=== PATIENT | female | born 1960 | race Caucasian/White ===

== ENCOUNTER 2021-02-08 12:33 | Observation (INO) ==
[2021-02-08] MEDS ORDERED: Pantoprazole 40 MG VIAL IVP ONE (12:44)
[2021-02-08] MEDS ORDERED: 0.9 % Sodium Chloride 1,000 ML IVC ONE (12:44)
[2021-02-08] MEDS ORDERED: Ondansetron ODT 4 MG TAB.RAPDIS SL ONE (12:44)
[2021-02-08] MEDS ORDERED: Ketorolac 30 MG/ML VIAL IVP ONE (12:44)
[2021-02-08 13:05] LABS: Basophils # 0.1 K/mcL (0.0-0.2); Basophils % 1.4 %; Eosinophils # 0.1 K/mcL (0.0-0.6); Eosinophils % 1.6 %; Hematocrit 43.2 % (35.3-44.9); Hemoglobin 14.9 g/dL (11.5-15.4); Immature Granulocytes % 0.4 % (0-4); Lymphocytes # 1.5 K/mcL (0.6-4.6); Mean Corpuscular HGB Conc 34.5 g/dL (31.6-35.5); Mean Corpuscular Hemoglobin 33.9 pg (28.0-33.3); Mean Corpuscular Volume 98.4 fL (83.0-100.0); Mean Platelet Volume 9.5 fL (9.4-12.4); Monocytes # 0.6 K/mcL (0.0-1.3); Monocytes % 7.6 %; Neutrophils # 5.1 K/mcL (1.6-8.9); Platelet Count 253 K/mcL (140-400); Red Blood Count 4.39 M/mcL (3.82-4.97); Red Cell Distribution Width 12.1 % (11.5-14.5); White Blood Count 7.4 K/mcL (4.3-11.1)
[2021-02-08 13:12] LABS: INR 1.1; Prothrombin Time 11.9 Seconds (9.4-12.1)
[2021-02-08 13:14] LABS: Activated Partial Thrombo Time 34.3 Seconds (26.0-36.0)
[2021-02-08 13:21] LABS: Alanine Aminotransferase 87 Units/L (7-52); Albumin 4.3 g/dL (3.5-5.7); Albumin/Globulin Ratio 1.3 (1.1-2.2); Alkaline Phosphatase 75 Units/L (34-104); Amylase 15 Units/L (29-103); Aspartate Amino Transferase 78 Units/L (13-39); BUN/Creatinine Ratio 7 (6-26); Bilirubin,Direct 0.2 mg/dL (0.0-0.2); Bilirubin,Indirect 0.4 mg/dL (0.0-1.0); Bilirubin,Total 0.6 mg/dL (0.3-1.0); Blood Urea Nitrogen 4 mg/dL (6-20); Calcium 9.1 mg/dL (8.6-10.3); Carbon Dioxide 21 mEq/L (23-29); Chloride 98 mEq/L (98-107); Globulin 3.2 g/dL (2.4-3.5); Glucose 104 mg/dL (70-105); Lipase 14 Units/L (11-82); Osmolality,Calculated 269 (280-300); Potassium 3.7 mEq/L (3.5-5.1); Sodium 131 mEq/L (136-145); Total Protein 7.5 g/dL (6.4-8.9); eGFR For African Americans > 60 (> 60); eGFR For Non-African Americans > 60 (> 60)
[2021-02-08 13:57] LABS: Bilirubin,Urine Negative (Negative); Blood,Urine Negative (Negative); Clarity,Urine Clear (Clear); Color,Urine Light-Yellow (Yellow); Glucose,Urine (UA) Normal (Normal); Ketones,Urine Negative (Negative); Leukocyte Esterase,Urine Negative (Negative); Nitrite,Urine Negative (Negative); PH,Urine 5.5 pH Units (5.0-8.0); Protein,Urine Negative (Neg-Trace); Specific Gravity,Urine 1.007 (1.010-1.025); Urobilinogen,Urine Normal (Normal)
[2021-02-08] MEDS ORDERED: *HR* Heparin 5,000 UNIT/ML VIAL IVP PRN ×2 (15:19)
[2021-02-08] MEDS ORDERED: *HR* Heparin 5,000 UNIT/ML VIAL IVP ONE (15:19)
[2021-02-08] MEDS ORDERED: Heparin 25,000UNIT/250ML 1/2NS 25,000 UNIT/250 ML IV.SOLN IVC SCH (15:30)
[2021-02-08 16:33] LABS: Amphetamine Screen,Urine Negative ng/mL (Cutoff=1000); Barbiturate Screen,Urine Negative ng/mL (Cutoff=200); Benzodiazepines Screen,Urine Negative ng/mL (Cutoff=200); Cannabinoid Screen,Urine Negative ng/mL (Cutoff = 50); Cocaine Screen,Urine Negative ng/mL (Cutoff= 300); Opiate Screen,Urine Negative ng/mL (Cutoff=300); Phencyclidine Screen,Urine Negative ng/mL (Cutoff=25)
[2021-02-08] MEDS ORDERED: Naloxone 0.4 MG/ML INJ IVP PRN (16:41)
[2021-02-08] MEDS ORDERED: Ondansetron ODT 4 MG TAB.RAPDIS SL PRN (16:41)
[2021-02-08] MEDS ORDERED: Melatonin 3 MG TABLET PO PRN (16:41)
[2021-02-08] MEDS ORDERED: Aspirin 325 MG TABLET PO ONE (16:44)
[2021-02-08] MEDS ORDERED: Sennosides/Docusate Sodium TABLET PO PRN (16:45)
[2021-02-08] MEDS ORDERED: Acetaminophen 325 MG TABLET PO PRN (16:46)
[2021-02-08] MEDS ORDERED: *HR* LORazepam 2 MG/ML VIAL IVP PRN ×3 (16:47)
[2021-02-08] MEDS ORDERED: diazePAM 10 MG/2 ML SYRINGE IVP PRN ×5 (16:47)
[2021-02-08] MEDS ORDERED: Perflutren Lipid Microsphere 1.3 ML in 0.9 % Sodium Chloride 8.7 ML IVP PRN (16:51)
[2021-02-08 17:19] LABS: Influenza A PCR Negative (Negative); Influenza B PCR Negative (Negative); Resp. Syncytial Virus PCR Negative (Negative)
[2021-02-08 17:20] LABS: SARS-CoV-2 by PCR (In House) Negative (Negative)
[2021-02-08] MEDS: Nicotine 21 MG PATCH.TD24 TD SCH (17:47)
[2021-02-08] MEDS: lisinopriL 5 MG TABLET PO SCH (17:50)
[2021-02-08 20:48] LABS: Estimated Average Glucose 111 mg/dl; Hemoglobin A1C 5.5 %
[2021-02-09 05:34] LABS: Basophils # 0.1 K/mcL (0.0-0.2); Basophils % 1.6 %; Eosinophils # 0.2 K/mcL (0.0-0.6); Eosinophils % 4.2 %; Hematocrit 39.4 % (35.3-44.9); Immature Granulocytes % 0.4 % (0-4); Lymphocytes # 1.6 K/mcL (0.6-4.6); Lymphocytes % 28.3 %; Mean Corpuscular HGB Conc 33.5 g/dL (31.6-35.5); Mean Corpuscular Hemoglobin 33.8 pg (28.0-33.3); Mean Platelet Volume 9.6 fL (9.4-12.4); Monocytes # 0.5 K/mcL (0.0-1.3); Monocytes % 8.2 %; Neutrophils # 3.1 K/mcL (1.6-8.9); Platelet Count 194 K/mcL (140-400); Red Cell Distribution Width 12.1 % (11.5-14.5); Segmented Neutrophils % 57.3 %; White Blood Count 5.5 K/mcL (4.3-11.1)
[2021-02-09 05:35] LABS: Hemoglobin 13.2 g/dL (11.5-15.4)
[2021-02-09 05:54] LABS: BUN/Creatinine Ratio 13 (6-26); Blood Urea Nitrogen 10 mg/dL (6-20); Calcium 8.7 mg/dL (8.6-10.3); Carbon Dioxide 26 mEq/L (23-29); Chloride 101 mEq/L (98-107); Chol/HDL Ratio 4.5 (0-4.9); Cholesterol 190 mg/dL (< 200); Glucose 106 mg/dL (70-105); HDL Cholesterol 42 mg/dL (40-59); LDL Cholesterol,Calculated 117 mg/dL (< 100); Magnesium 1.9 mg/dL (1.6-2.6); Osmolality,Calculated 275 (280-300); Phosphorous 4.8 mg/dL (2.7-4.5); Potassium 3.8 mEq/L (3.5-5.1); Sodium 133 mEq/L (136-145); Triglycerides 156 mg/dL (< 150); Troponin I < 0.03 ng/mL (< 0.04); eGFR For African Americans > 60 (> 60); eGFR For Non-African Americans > 60 (> 60)
[2021-02-09] MEDS: Nicotine 21 MG PATCH.TD24 TD SCH (08:27)
[2021-02-09] MEDS: lisinopriL 5 MG TABLET PO SCH (08:47)
[2021-02-09] MEDS ORDERED: Folic Acid 1 MG TABLET PO SCH (09:00)
[2021-02-09] MEDS ORDERED: Thiamine (B-1) 100 MG TABLET PO SCH (09:00)
[2021-02-09] MEDS ORDERED: Aspirin 81 MG TAB.CHEW PO SCH (09:00)
[2021-02-09 11:19] VITALS: BP 120/82; PULSE 70; TEMP 97.9; O2SAT 93
[2021-02-09 11:45] LABS: Troponin I < 0.03 ng/mL (< 0.04)
[2021-02-09 13:11] LABS: Folate > 22.3 ng/mL (3.0-16.0); Vitamin B12 207 pg/mL (250-1100)
== END 2021-02-09 14:46 | disposition home or self-care (01) ==
LOC: EMEROOARM 12:33 → 3BNU 12:33
PROVIDERS: ADMIT Internal Medicine; ATTEND Internal Medicine